=== PATIENT | female | born 1960 | race Caucasian/White ===

== ENCOUNTER 2019-05-16 12:32 | Observation (INO) | payer SELFPAY ==
[~2019-05-16] VITALS: Ht 165.1 cm; Wt 124.0 kg
[~2019-05-16 12:32] MED LIST: BENTYL20 MG OR; CIPRO500 MG PO; EX-LAX OR; SYNTHROID88 MCG PO; ULTRAM50 MG OR
--- NOTE | 2019-05-16 12:50 | NUR ---
PT TO ROOM WITH STEADY GAIT
--- NOTE | 2019-05-16 13:00 | NUR ---
PT STATES THAT SHE HAS BEEN SOB FOR PAST 2 DAYS. PT WAS SEEN AT [facility] AND SAID TO HAVE A ABNORMAL EKG AND WAS SATING LOW AROUND 77. PT ALSO HAS SWELLIGN AND REDNESS TO THE LEFT LEG. PT IS AOX4, TALKING IN FULL SENTENCES, SHOWING NO SIGNS OF DISTRESS. PT DENIES ANY C/P, N/V OR WEAKNESS.
--- NOTE | 2019-05-16 13:40 | NUR ---
BREATHING HAS IMPROVED WITH MEDICATION. PT STATES NO SOB AT THIS TIME.
--- NOTE | 2019-05-16 13:50 | NUR ---
PT RESTING ON STRETHCER, NO COMPLAINTS STATED AT THIS TIME.
[2019-05-16 14:09] LABS: IMMATURE GRANULOCYTES 0.6 % (0.0-5.0); MEAN CORPUSCULAR HGB 25.5 pG CALC (26.0-32.0); MEAN CORPUSCULAR HGB CONC 28.9 g/L CALC (32.0-36.0); NEUT# 4.92 thou/uL (2.00-7.15); RED BLOOD COUNT 5.22 mill/uL (4.20-5.60); RED CELL DISTRI WIDTH 17.2 % (11.5-15.5)
[2019-05-16 14:19] LABS: HEMOGLOBIN 13.3 g/dl (12.0-16.0); MEAN CELL VOLUME 88.1 fL CALC (80.0-100.0)
[2019-05-16 14:27] LABS: ALKALINE PHOSPHATASE 94 u/l (38-126); BUN 8 mg/dL (7-17); BUN/CREATININE RATIO 12 (12-20 (CALC)); CHLORIDE 94 mmol/l (95-108); CREATININE 0.7 mg/dL (0.5-1.0); GFR > 60 ML/MIN (>=60 (CALC)); GFR FOR AFR.AMER. > 60 ML/MIN (>=60 (CALC)); POTASSIUM 4.8 mmol/l (3.5-5.1); SGOT/AST 18 u/l (14-36); SODIUM 136 mmol/l (137-146); TOTAL PROTEIN 6.2 g/dL (6.3-8.2)
[2019-05-16 14:29] LABS: ALBUMIN 3.3 g/dL (3.2-5.0); ANION GAP 10 (6-22 (CALC)); CARBON DIOXIDE 37 mmol/l (22-30)
--- NOTE | 2019-05-16 14:50 | NUR ---
PT RESTING ON STRETHCER, IV PATENT WITH FLUIDS RUNNING. PT STATES BREATHING HAS IMPROVED
--- NOTE | 2019-05-16 15:50 | NUR ---
PT RESTING ON STRETCHER, NO COMPLAINTS STATED AT THIS TIME.
--- NOTE | 2019-05-16 16:13 | NUR ---
REPORT CALLED TO DEBBIE GUTIERREZ ACCEPTED PT
--- NOTE | 2019-05-16 16:22 | NUR ---
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;PT DENIES ANY CURRENT PAIN OR DISCOMFORTS,PAIN SCALE AND REPORTING EDUCATED;RESPIRATIONS EVEN AND UNLABORED ON O2 @ 2L VIA NC,DIMINISHED LUNG SOUNDS NOTED;NON-PRODUCTIVE COUGH AT TIMES;ABDOMEN DISTENDED/SOFT ON PALPATION AND ACTIVE IN ALL 4 QUADRANTS,LAST BM 05/16/19;WEAK PEDAL PULSES WITH +1 EDEMA NOTED TO BLE;PT REPORTS EDEMA HAS BEEN PRESENT FOR 5 MTHS,ENCOURAGED ELEVATION OF BLE;SKIN INTACT;TELE MONITORING IN PLACE;#20G TO LAC FLUSHED AND PATENT,SITE APPEARS HEALTHY;ALLERGY AND FALL BAND APPLIED;PT DENIES ANY ADDITIONAL NEEDS AT THIS TIME AND IS ENCOURAGED TO CALL FOR ASSISTANCE IF NEEDED;FALL PRECAUTIONS IN PLACE WITH BED IN THE LOWEST POSITION AND CALL LIGHT IN REACH;WILL CONTINUE TO MONITOR
[2019-05-16 16:31] VITALS: BP 130/86
--- NOTE | 2019-05-16 19:00 | NUR ---
PT RESTING IN SEMI FOWLERS POSITION;RESPIRATIONS EVEN AND UNLABORED ON O2 @ 2L VIA NC;PT DENIES ANY CURRENT PAIN OR NEEDS;TELE MONITORING IN PLACE;ENCOURAGED PT TO CALL FOR ASSISTANCE IF NEEDED;CALL LIGHT IN REACH;WILL CONTINUE TO MONITOR
[2019-05-16 20:00] VITALS: BP 134/72
--- NOTE | 2019-05-16 20:00 | NUR ---
PATIENT ALERT ORIENTED, ABLE TO MAKE NEEDS KNOWN, WITH SALINE LOCK ON LAC G20, PATENT FLUSHES WELL, NOTED TO HAVE EXERTIONAL DYSPNEA, REMAINS ON CONTINUOUS OS @2LPM VIA NC, TEL IN PLACE, CALL LIGHT AT REACH.
[2019-05-17] VITALS: BP 108/59
--- NOTE | 2019-05-17 | NUR ---
PATIENT APPEARS TO BE SLEEPING WITH EYES CLOSED, EVEN UNLABORED BREATHING CALL LIGHT AT REACH.
[2019-05-17 04:40] VITALS: BP 118/60
[2019-05-17 04:47] LABS: HEMATOCRIT 46.7 % (37.0-47.0); HEMOGLOBIN 13.1 g/dl (12.0-16.0); MEAN CELL VOLUME 90.5 fL CALC (80.0-100.0); MEAN CORPUSCULAR HGB 25.4 pG CALC (26.0-32.0); MEAN CORPUSCULAR HGB CONC 28.1 g/L CALC (32.0-36.0); PLATELET COUNT 162 thou/uL (130-400); RED BLOOD COUNT 5.16 mill/uL (4.20-5.60); RED CELL DISTRI WIDTH 16.9 % (11.5-15.5)
[2019-05-17 04:59] LABS: IMMATURE GRANULOCYTES 6.8 % (0.0-5.0); MANUAL DIFFERENTIAL YES
--- NOTE | 2019-05-17 05:00 | NUR ---
PATIENT AWAKE AT THIS TIME, ASSISTED TO BATHROOM, REMAINS ON O2 @ 2LPM VIA NC, WITH SHALLOW, UNLABORED BREATHING CALL LIGHT AT REACH.
[2019-05-17 05:01] LABS: ANION GAP 12 (6-22 (CALC)); BUN 8 mg/dL (7-17); BUN/CREATININE RATIO 13 (12-20 (CALC)); CALCULATED LDLCHOLESTEROL 72 mg/dL (62-129 (CALC)); CARBON DIOXIDE 34 mmol/l (22-30); CHLORIDE 97 mmol/l (95-108); CHOLESTEROL HDL RATIO 4.1 (<4.4 (CALC)); CREATININE 0.6 mg/dL (0.5-1.0); GFR > 60 ML/MIN (>=60 (CALC)); GFR FOR AFR.AMER. > 60 ML/MIN (>=60 (CALC)); HDL CHOLESTEROL 28 mg/dL (>=40); MAGNESIUM 2.2 mg/dL (1.6-2.3); SODIUM 138 mmol/l (137-146); TOTAL CHOLESTEROL 113 mg/dl (0-199); TOTAL TRIGLYCERIDES 69 mg/dl (30-149); VLDL CHOLESTROL 14 mg/dl (1-41 (CALC))
[2019-05-17 05:03] LABS: POTASSIUM 5.3 mmol/l (3.5-5.1)
[2019-05-17 05:18] LABS: ANISOCYTOSIS FEW; BAND 2 % (0-8); HYPOCHROMIA FEW; POIKILOCYTOSIS FEW; POLYCHROMASIA FEW
[2019-05-17 05:19] LABS: TARGET CELLS FEW
[2019-05-17 05:20] LABS: PLATELET ESTIMATE NORMAL
--- NOTE | 2019-05-17 07:25 | NUR ---
REPORT RECEIVED FROM EUGENIO STONE;PT APPEARS TO BE SLEEPING IN LEFT SIDE LAYING POSITION;NO S/S OF DISTRESS NOTED;RESPIRATIONS EVEN AND UNLABORED ON O2 @ 2L VIA NC;TELE MONITORING IN PLACE;ALL SAFETY PRECAUTIONS NOTED WITH BED IN THE LOWEST POSITION AND CALL LIGHT IN REACH;WILL CONTINUE TO MONITOR
--- NOTE | 2019-05-17 09:20 | NUR ---
PT APPEARS TO BE SLEEPING IN SUPINE POSITION,WAKES EASY TO VERBAL STIMULI;A&O X3;VS OBTAINED AND ASSESSMENT COMPLETED;PT DENIES ANY CURRENT PAIN OR DISCOMFORTS,PAIN SCALE AND REPORTING EDUCATED;RESPIRATIONS EVEN AND UNLABORED,SHALLOW ON O2 @ 2L VIA NC;ABDOMEN DISTENDED/SOFT ON PALPATION AND ACTIVE IN ALL 4 QUADANTS;WEAK PEDAL PULSES WITH +1 EDEMA NOTED TO BLE,ENCOURAGED ELEVATION OF BLE;SKIN INTACT;TELE MONITORING IN PLACE;#20G TO LAC FLUSHED AND PATENT,SITE APPEARS HEALTHY;PT DENIES ANY ADDITIONAL NEEDS AT THIS TIME AND IS ENCOURAGED TO CALL FOR ASSISTANCE IF NEEDED;FALL PRECAUTIONS IN PLACE WITH CALL LIGHT IN REACH;WILL CONTINUE TO MONITOR
[2019-05-17 09:21] VITALS: BP 107/68
[2019-05-17 11:31] VITALS: BP 116/50
--- NOTE | 2019-05-17 11:55 | NUR ---
PT RESTING AT BEDSIDE EATING LUNCH;RESPIRATIONS EVEN AND UNLABORED ON O2 @ 2L VIA NC;PT DENIES ANY CURRENT PAIN OR NEEDS;TELE MONITORING IN PLACE;IV SITE PATENT;ASSESSMENT REMAINS UNCHANGED AT THIS TIME;ENCOURAGED PT TO CALL FOR ASSISTANCE IF NEEDED;FALL PRECAUTIONS IN PLACE WITH CALL LIGHT IN REACH;WILL CONTINUE TO MONITOR
--- NOTE | 2019-05-17 15:15 | NUR ---
PT RESTING AT BEDSIDE;RESPIRATIONS EVEN AND UNLABORED ON O2 @ 2L VIA NC;PT DENIES ANY CURRENT PAIN OR DISCOMFORTS;TELE MONITORING IN PLACE;IV ABX INFUSING TO LAC WITH EASE;ASSESSMENT REMAINS UNCHANGED AT THIS TIME;ENCOURAGED TO CALL FOR ASSISTANCE IF NEEDED;FALL PRECAUTIONS IN PLACE WITH CALL LIGHT IN REACH;WILL CONTINUE TO MONITOR
[2019-05-17 17:04] VITALS: BP 107/69
--- NOTE | 2019-05-17 19:15 | NUR ---
REPORT RECEIVED FROM SYLVIA MILLS. PT RESTING IN BED WITH EYES CLOSED. SAFETY PRECAUTIONS IN PLACE. WILL CONTINUE TO MONITOR.
[2019-05-17 19:40] VITALS: BP 118/64
--- NOTE | 2019-05-17 20:35 | NUR ---
PT RESTING IN BED. RESPIRATIONS EVEN AND UNLABORED ON O2 @ 2L VIA NC. LUNGS SOUND CLEAR DIMINISHED. PEDAL PULSES WEAK. PT DENIES ANY PAIN OR DISCOMFORT AT THIS TIME. #20 LAC PATENT AND APPEARS HEALTHY. SAFETY PRECAUTIONS IN PLACE. WILL CONTINUE TO MONITOR.
--- NOTE | 2019-05-18 00:10 | NUR ---
PT RESTING IN BED. TELE IN PLACE. RESPIRATIONS EVEN AND UNLABORED ON O2 @ 2L VIA NC. CALL PINEDA WITHIN REACH WILL CONTINUE TO MONITOR.
[2019-05-18 00:20] VITALS: BP 141/73
[2019-05-18 03:40] VITALS: BP 112/59
--- NOTE | 2019-05-18 03:48 | NUR ---
PT RESTING IN BED. NO S/S OF DISTRESS AT THIS TIME. SAFETY PRECAUTIONS IN PLACE. WILL CONTINUE TO MONITOR.
[2019-05-18 04:50] LABS: HEMATOCRIT 44.6 % (37.0-47.0); HEMOGLOBIN 12.5 g/dl (12.0-16.0); IMMATURE GRANULOCYTES 3.1 % (0.0-5.0); MEAN CELL VOLUME 91.4 fL CALC (80.0-100.0); MEAN CORPUSCULAR HGB 25.6 pG CALC (26.0-32.0); NEUT# 7.26 thou/uL (2.00-7.15); RED BLOOD COUNT 4.88 mill/uL (4.20-5.60); RED CELL DISTRI WIDTH 17.1 % (11.5-15.5)
[2019-05-18 05:06] LABS: ANION GAP 11 (6-22 (CALC)); BUN 14 mg/dL (7-17); BUN/CREATININE RATIO 23 (12-20 (CALC)); CARBON DIOXIDE 35 mmol/l (22-30); CHLORIDE 96 mmol/l (95-108); CREATININE 0.6 mg/dL (0.5-1.0); GFR > 60 ML/MIN (>=60 (CALC)); GFR FOR AFR.AMER. > 60 ML/MIN (>=60 (CALC)); MAGNESIUM 2.3 mg/dL (1.6-2.3); SODIUM 137 mmol/l (137-146)
[2019-05-18 05:10] LABS: POTASSIUM 5.3 mmol/l (3.5-5.1)
--- NOTE | 2019-05-18 07:45 | NUR ---
REPORT RECEIVED FROM EUGENIO ABREU. PT SUPINE IN BED. SLEEPING. CALL LIGHT WITHIN REACH.
--- NOTE | 2019-05-18 08:30 | NUR ---
PT SITTING ON SIDE OF BED. DENIES PAIN. REPORTING OF CONCERNS ENCOURAGED. PLAN OF CARE DISCUSSED. PT STATES ANTICIPATION OF DISCHARGE TODAY. DISCHARGE PROCESS REVIEWED. PT ALERT AND ORIENTED. O2 @ 2L VIA NC, TELE UNIT IN PLACE. NO SOB. LUNG SOUNDS CLEAR AND DIMINISHED IN BASES. # 20 LAC SALINE LOCK, FREE OF REDNESS/SWELLING. CALL LIGHT REVIEWED AND IN REACH. PT STATES UNDERSTANDING.
[2019-05-18 09:12] VITALS: BP 120/60
[2019-05-18 11:37] VITALS: BP 108/51
--- NOTE | 2019-05-18 13:15 | NUR ---
RIP MCCAULEY IN TO SEE PT. AT THIS TIME. PLAN OF CARE UPDATED.
[2019-05-18 14:55] VITALS: BP 132/71
--- NOTE | 2019-05-18 15:43 | NUR ---
DR. JUAREZ IN TO SEE PT. DISCHARGE HOME DISCUSSED AND AGREED UPON.
[2019-05-18] MEDS ORDERED: ZITHROMAX500 MG PO (17:20)
[2019-05-18] MEDS ORDERED: PREDNISONE50 MG PO (17:20)
--- NOTE | 2019-05-18 18:37 | NUR ---
Discharge instructions given. Patient verbalizes understanding of same. Discharged in stable condition via Wheelchair to Home with family. All belongings sent with pt.
== END 2019-05-18 18:37 | disposition home or self-care (01) | DRG 190 ==
LOC: ED 12:32 → ED-I 12:59 → ED 15:01 → MS2 15:02
PROVIDERS: Family Medicine; Nurse Practitioner Family; ADMIT Internal Medicine; ATTEND Internal Medicine
DX: J44.1 Chronic obstructive pulmonary disease with (acute) exacerbation (principal); J96.02 Acute respiratory failure with hypercapnia; J96.01 Acute respiratory failure with hypoxia; F17.200 Nicotine dependence, unspecified, uncomplicated; Z85.9 Personal history of malignant neoplasm, unspecified; Z92.21 Personal history of antineoplastic chemotherapy; Z92.3 Personal history of irradiation
CPT/HCPCS: G0378; J1650

== ENCOUNTER 2019-05-25 21:40 | Emergency (ER) | payer SELFPAY ==
[~2019-05-25 21:40] MED LIST changes: +PREDNISONE50 MG PO; +ZITHROMAX500 MG PO
[2019-05-25 22:00] VITALS: BP 159/89
== END 2019-05-25 22:45 | disposition left against medical advice (07) | DRG 951 ==
LOC: ED 21:40 → LWOBS 22:45 → ED 22:45
DX: Z53.21 Procedure and treatment not carried out due to patient leaving prior to being seen by health care provider (principal)

== ENCOUNTER 2019-11-06 17:34 | Inpatient (IN) | payer MEDICAID ==
[~2019-11-06] VITALS: Ht 274.3 cm; Wt 120.9 kg
--- NOTE | 2019-11-06 17:40 | NUR ---
PT TO ROOM VIA WHEELCHAIR AND CONVERSTATIONALLY DYSPNEIC. SPO2 66% ON ROOM AIR. PT PLACED ON 4L NC.
--- NOTE | 2019-11-06 17:50 | NUR ---
PT PLACED SATS INCREASED TO 95% ON 4L NC. PT REPORTS BEING ON A UNKNOWN ANTIBIOTIC FOR SWELLING AND REDNESS TO ABD. PT ABD FIRM TO THE TOUCH AND REDNESS NOTED TO ABD LEFT BREAST AND RADIATING DOWN LEG.
--- NOTE | 2019-11-06 17:50 | NUR ---
IV INITIATED AND LABS COLLECTED. PT RESTING IN STRETCHER IN NAD. SPEECH IS CLEAR. COVID SWAB COLLECTED. PT TOLERATED WELL.
--- NOTE | 2019-11-06 18:00 | NUR ---
PT SATS REMAINS 94-96% ON 4L NC. PT DENIES ANY NEEDS AT THIS TIME CALL PINEDA WITHIN REACH.
[2019-11-06 18:17] LABS: HEMATOCRIT 45.4 % (37.0-47.0); IMMATURE GRANULOCYTES 0.9 % (0.0-5.0); MEAN CELL VOLUME 87.5 fL CALC (80.0-100.0); MEAN CORPUSCULAR HGB CONC 28.6 g/dL CAL (32.0-36.0); NEUT# 6.55 thou/uL (2.00-7.15); RED BLOOD COUNT 5.19 mill/uL (4.20-5.60); RED CELL DISTRI WIDTH 17.6 % (11.5-15.5)
--- NOTE | 2019-11-06 18:34 | NUR ---
UNABLE TO RECONCILE MEDICATIONS. PT HAS ALL MEDICATIONS FILLED AT [facility] AND WE ARE UNABLE TO REACH AT THIS TIME.
[2019-11-06 18:40] LABS: ALBUMIN 3.6 g/dL (3.2-5.0); ALKALINE PHOSPHATASE 100 u/l (38-126); ANION GAP 9 (6-22 (CALC)); BILIRUBIN, TOTAL 1.4 mg/dL (0.0-1.4); BUN 10 mg/dL (7-17); BUN/CREATININE RATIO 14 (12-20 (CALC)); CARBON DIOXIDE 37 mmol/l (22-30); CHLORIDE 92 mmol/l (95-108); CREATININE 0.7 mg/dL (0.5-1.0); GFR > 60 ML/MIN (>=60 (CALC)); GFR FOR AFR.AMER. > 60 ML/MIN (>=60 (CALC)); POTASSIUM 4.3 mmol/l (3.5-5.1); SODIUM 134 mmol/l (137-146); TOTAL PROTEIN 6.5 g/dL (6.3-8.2)
[2019-11-06 18:47] LABS: SGOT/AST 47 u/l (14-36)
--- NOTE | 2019-11-06 19:00 | NUR ---
REPORT TO EUGENIO ROSAS.
--- NOTE | 2019-11-06 19:49 | NUR ---
ATTEMPTED TO CALL REPORT/WILL CALL BACK.
--- NOTE | 2019-11-06 20:11 | NUR ---
REPORT TO KALLIE/NURSE-MED SURG.
--- NOTE | 2019-11-06 20:20 | NUR ---
PT RESTING. NAD. DAUGHTER AT BEDSIDE. IV ANTIBIOTICS COMPLETED. PT TO FLOOR VIA STRETCHER ON MONITOR BOX/O2 @ 4 LPM NC. PT AMBULATORY TO BED UPON ARRIVAL TO FLOOR.
[2019-11-06 20:27] VITALS: BP 140/78
--- NOTE | 2019-11-06 20:28 | NUR ---
RECEIVED REPORT FROM NURSE ROSAS, PATIENT TRANSPORTED BY WHEELCHAIR, HOOKED TO O2 @ 4LPM VIA NC, ORIENTED TO ROOM AND CALL LIGHT SYSTEM.
--- NOTE | 2019-11-06 21:30 | NUR ---
ADMISSION ASSESSMENT COMPLETED, PATIENT A/O X 4 KOSTAS TO MAKE NEEDS KNONW, WITH SALINE LOCK ON RFA PATENT, NOTED TO HAVE AUDIBLE WHEEZES, AND PATIENT REQUESTING TO RESTART INHALER.
--- NOTE | 2019-11-06 22:07 | NUR ---
CONTACTED DR. MCGOWAN WITH ORDERS MADE.
[2019-11-06 22:44] LABS: URINE BILIRUBIN - DIPSTICK NEGATIVE (NEGATIVE); URINE BLOOD DIPSTICK NEGATIVE (NEGATIVE); URINE COLOR YELLOW; URINE GLUCOSE - DIPSTICK NEGATIVE (NEGATIVE); URINE KETONE NEGATIVE (NEGATIVE); URINE LEUK ESTERASE NEGATIVE (NEGATIVE); URINE NITRITE - DIPSTICK NEGATIVE (Negative); URINE PROTEIN - DIPSTICK NEGATIVE (NEG-TRACE)
[2019-11-07] VITALS (7 sets, daily range): BP systolic 97–152; BP diastolic 46–73
--- NOTE | 2019-11-07 00:30 | NUR ---
PATIENT APPEARS TO BE SLEEPING DUE ANTIBIOTIC GIVEN CALL LIGHT AT REACH.
--- NOTE | 2019-11-07 05:07 | NUR ---
PATIENT APPEARS TO BE SLEEPING WITH EYES CLOSED, PATIENT KEEPS ON REMOVING O2 CANULA AND O2 SAT DROPS TO 80'S PATIENT EDUCATED THAT THE NEEDS TO WEAR IT AT THIS TIME, CALL LIGHT AT REACH
--- NOTE | 2019-11-07 08:05 | NUR ---
REPORT RECEIVED FROM EUGENIO ARREGUIN. PT RESTING IN BED ON LEFT SIDE WITH EYES CLOSED AND NO SIGNS OF DISTRESS; AWAKENS TO TACTILE STIMULI, BUT KEEPS EYES CLOSED. ENCOURAGEMENT NECESSARY FOR PT TO RESPOND TO QUESTIONS; FLAT AFFECT. DENIES PAIN. RESPIRATIONS EVEN AND UNLABORED ON OXYGEN 3L VIA NC; EXERTIONAL SOB. LUNGS ARE DIMINISHED. PITTING EDEMA TO BLE; LEGS ARE MODERATELY RED WITH WARMTH. LOWER ABDOMINAL ALSO RED AND WARM. PLAN OF CARE REVIEWED. PT ENCOURAGED TO VERBALIZE CONCERNS. STATES UNDERSTANDING. SAFETY MEASURES IN PLACE. CALL LIGHT WITHIN REACH.
[2019-11-07] MEDS ORDERED: CLEOCIN300 MG PO (08:38)
[2019-11-07] MEDS ORDERED: KLOR-CON M2020 MEQ PO (08:41)
[2019-11-07] MEDS ORDERED: FUROSEMIDE20 MG PO (08:46)
[2019-11-07] MEDS ORDERED: PROVENTIL HFA IN (08:48)
[2019-11-07] MEDS ORDERED: SYMBICORT1 AE1 IN (08:49)
--- NOTE | 2019-11-07 12:00 | NUR ---
PT INDEPENDENT IN ROOM; AMBULATES TO THE BATHROOM WITH OXYGEN ON. 93% SPO2 ON 3L VIA NC. BEDSIDES EATING AND USING BATHROOM PT RESTS ON LEFT SIDE AND TAKES ENCOURAGEMENT TO ANSWER QUESTIONS FROM PHARMACY AND CASE MANAGEMENT. ZOSYN INFUSING AT THIS TIME; IV SITE APPEARS HEALTHY AND FLUSHES. PT DENIES COUGH, PAIN, AND SOB. TELE ON; NSR PER HAMPER MAKER MACHINE.
--- NOTE | 2019-11-07 16:00 | NUR ---
NO CHANGES IN CONDITION. PT HAS NOT CALLED FOR ASSISTANCE. SAFETY MEASURES IN PLACE. CALL LIGHT WITHIN REACH.
--- NOTE | 2019-11-07 17:34 | NUR ---
NEW ORDER RECEIVED FOR LASIX; GIVEN AND PT EDUCATED ON IDICATION AND SIDE EFFECTS. STATES UNDERSTANDING. OTHERWISE KEEPS EYES CLOSED AND CONTINUES RESTING ON LEFT SIDE. FAMILY DROPPED OFF SOME BELONGINGS AND STAFF PROVIDED TO PT WHO REMAINS ON AIRBORNE/CONTACT ISOLATION PENDING COVID SWAB RESULTS.
--- NOTE | 2019-11-08 01:34 | NUR ---
Appears asleep, resp unlabored, no voiced discomforts at present.
[2019-11-08 04:12] VITALS: BP 121/56
--- NOTE | 2019-11-08 06:45 | NUR ---
REPORT RECEIVED FORM SHA VYAS RN. CARE ASSUMED.
[2019-11-08 07:30] VITALS: BP 112/51
--- NOTE | 2019-11-08 07:30 | NUR ---
PT RESTING IN BED WITH EYES CLOSED. PT AROUSES TO VERBAL STIMULI. PT IS ALERT AND ORIENTED X3. SHIFT ASSESSMENT COMPLETED AT THIS TIME. IV PATENT X1. PT NOT WEARING O2. INSTRUCTED PT TO PLACE O2 NC ON. PT ABLE TO FOLLOW INSTRUCTIONS. CALL LIGHT IN REACH. WILL CONTINUE TO MONITOR.
--- NOTE | 2019-11-08 10:30 | NUR ---
Farida DELGADILLO APRN AT BESIDE AT THIS TIME.
[2019-11-08 11:22] VITALS: BP 119/66
--- NOTE | 2019-11-08 11:45 | NUR ---
#20 RFA REMOVED WITH CATH TIP INTACT DUE TO IV LEAKING. #22 STARTED TO RIGHT WRIST X1 ATTEMPT. PT TOLERATED WELL. CALL LIGHT IN REACH. WILL CONTINUE TO MONITOR.
--- NOTE | 2019-11-08 15:55 | NUR ---
CALL RECEIVED FROM JOSE,S[facility] REPORTING PT HEART RATE IN LOW 30'S. EUGENIO VALLE NOTIFIED.PER LEONARD PT IS SITTING UP ON THE SIDE OF THE BED TOUCHING TELE LEADS,DENIES ANY PAIN OR NEEDS;ER NOTIFIED AND JOSE REPORTS PT HR IS NOW IN THE 60'S.
--- NOTE | 2019-11-08 16:00 | NUR ---
PT SITTING UP ON SIDE OF RESP ARE EVEN AND UNLABORED. NO DISTRESS NOTED. ROOM CLEANED AT THIS TIME BY THIS INSULATOR TESTER. CALL LIGHT IN REACH. WILL CONTINUE TO MONITOR.
[2019-11-08 16:07] VITALS: BP 95/59
[2019-11-08 18:30] VITALS: BP 104/72
--- NOTE | 2019-11-08 20:10 | NUR ---
SUPERVISOR EDGING IN W/PT AT THIS TIME. SMALL AMOUNT OF INCONTINENT STOOL IN THE BED, BEDDING CHANGED. PT IS TAKING A SHOWER AT THIS TIME. WILL FOLLOW-UP WITH MEDICATIONS AND ASSESSMENT WHEN PT IS OUT OF THE SHOWER. SUPERVISOR EDGING ASSISTING PT.
--- NOTE | 2019-11-08 21:56 | NUR ---
PT MEDICATED ORDERS PROVIDE. ASSESSMENT COMPLETED AT THIS TIME. PT SLEEPING, AWOKE TO MY VOICE, RESPONDED TO MY QUESTIONS, NAME AND , BUT KEPT EYES CLOSED. NO S/O DISTRESS. I ASKED PT IF SHE FELT SOB, SHE SHOOK HER HEAD NO. WHEN ASKED ABOUT PAIN/N/V, SHOOK HEAD NO. REDNESS TO BLE AND REDNESS UP ON HER ABD. I ASKED THE PT IF SHE HAS BEEN RED ON HER ABDOMEN ALSO, SHE REPLIED "YES IT'S BEEN LIKE THAT, THEY GAVE ME ANTIBIOTICS." DENIES ANY NEEDS AT THIS TIME, LIGHTS AND TV ARE ON, I TURNED THE [employer] LIGHT OFF FOR HER AND REMINDED HER OF LIGHT CONTROLS SUPERVISOR ADVICE LIGHT.
[2019-11-08 23:50] VITALS: BP 122/45
--- NOTE | 2019-11-09 00:06 | NUR ---
PT MEDICATED W/IV ANTIBIOTIC THERAPY. PT SLEEPING WITH LIGHTS AND TV ON. AIDE JUST IN TO OBTAIN V/S. PT DENIES ANY NEEDS. OXYGEN WAS ON PT'S FOREHEAD WHEN I ENTERED THE ROOM. AIDE REPORTS THAT PT WAS NOT WEARING OXYGEN AT TIME SHE ENTERED TO OBTAIN V/S AND THAT PT'S OXYGEN SAT LEVEL WAS HIGH 80'S ROOM AIR AND WHEN OXYGEN NC WAS PLACED TO NOSE PT'S O2 LEVELS TIN TO 94% I REMINDED PT OF THE NEED FOR OXYGEN AND SHE QUICKLY PLACED IT BACK IN HER NOSE.
--- NOTE | 2019-11-09 03:24 | NUR ---
pt v/s assessed and equipment monitor phototypesetting contacts replaced. pt was not wearing her oxygen when I entered the room. 02 sat low 80's on RA. I replaced NC and pt 02sat level came to 90% on 02NC @3L. Will continue to monitor levels. I educated pt on the importance of wearing her oxygen, she verbalized understanding. Blood drawn for labs at this time. Extra blanket provided per request for comfort. Pt denies any other needs and encouraged to call as they arise.
[2019-11-09 03:31] VITALS: BP 129/78
[2019-11-09 05:27] LABS: HEMATOCRIT 43.8 % (37.0-47.0); HEMOGLOBIN 12.1 g/dl (12.0-16.0); MEAN CELL VOLUME 90.9 fL CALC (80.0-100.0); MEAN CORPUSCULAR HGB 25.1 pG CALC (26.0-32.0); MEAN CORPUSCULAR HGB CONC 27.6 g/dL CAL (32.0-36.0); RED BLOOD COUNT 4.82 mill/uL (4.20-5.60); RED CELL DISTRI WIDTH 17.6 % (11.5-15.5)
[2019-11-09 05:40] LABS: ALBUMIN 3.4 g/dL (3.2-5.0); ALKALINE PHOSPHATASE 82 u/l (38-126); BUN 17 mg/dL (7-17); BUN/CREATININE RATIO 20 (12-20 (CALC)); CHLORIDE 90 mmol/l (95-108); CREATININE 0.9 mg/dL (0.5-1.0); GFR > 60 ML/MIN (>=60 (CALC)); GFR FOR AFR.AMER. > 60 ML/MIN (>=60 (CALC)); SGOT/AST 24 u/l (14-36); SODIUM 137 mmol/l (137-146)
[2019-11-09 05:48] LABS: ANION GAP 6 (6-22 (CALC))
[2019-11-09 05:49] LABS: BILIRUBIN, TOTAL 0.8 mg/dL (0.0-1.4); CARBON DIOXIDE 45 mmol/l (22-30)
--- NOTE | 2019-11-09 06:04 | NUR ---
LAB CALLED TO REPORT CRITICAL HIGH CO2 LEVELS OF 45 UP FROM 39. PHYSICIAN NOTIFIED, NO NEW ORDERS RECEIVED AT THIS TIME.
--- NOTE | 2019-11-09 06:30 | NUR ---
ROOM ENTERED TO FLUSH IV, IV ANTIBIOTIC THERAPY COMPLETE AT THIS TIME. PT LAYING ON LEFT SIDE OFF. NC REPLACED AND PT REMINDED TO KEEP IT ON.
--- NOTE | 2019-11-09 07:50 | NUR ---
REPORT RECEIVED FROM EUGENIO JOSEPH. PT RESTING IN BED ON LEFT SIDE; SAT UP ON EDGE OF BED FOR BREAKFAST. ALERT AND ORIENTED. DENIES PAIN. RESPIRATIONS EVEN AND UNLABORED ON OXYGEN 3L VIA NC. UPON ENTER ROOM NC WAS REMOVED FROM NARES AND RESTING BELOW CHIN; PT REPLACED OXYGEN TO NOSE IMMEDIATELY WITHOUT BEING INSTRUCTED BY NURSE. IV SITE OCCLUDED DURING FLUSH. TELE ON. PLAN OF CARE REVIEWED. PT ENCOURAGED TO VERBALIZE CONCERNS. STATES UNDERSTANDING. SAFETY MEASURES IN PLACE. CALL LIGHT WITHIN REACH.
[2019-11-09 07:58] VITALS: BP 110/53
--- NOTE | 2019-11-09 09:19 | NUR ---
PT TRANSFERRED TO ROOM 261 AND PLACED ON STANDARD PRECAUTIONS. PT AMBULATED WITH OXYGEN; SPO2 DECREASED BELOW 80%; AT REST WITH 3L NC SPO2 INCREASED BACK TO 97%.
--- NOTE | 2019-11-09 09:46 | NUR ---
NEW IV SITE PLACED TO LFA; OCCLUDED SITE REMOVED; PT TOLERATED WELL. CASE MANAGEMENT AT BEDSIDE TO DISCUSS POSSIBLE NEED FOR OXYGEN ON DISCHARGE.
[2019-11-09 10:49] VITALS: BP 111/63
--- NOTE | 2019-11-09 11:46 | NUR ---
PT SITTING UP ON EDGE OF BED EATING LUNCH. ZOSYN INFUSING WITHOUT DIFFICULTY.
--- NOTE | 2019-11-09 13:40 | NUR ---
RT AT BEDSIDE FOR BREATHING TREATMENT.
--- NOTE | 2019-11-09 15:02 | NUR ---
SPO2 READING 81% ON 3L NC DURING ROUNDS. O2 TITRATED UP TO 4L. PT DENIES SOB AND RESPIRATIONS ARE EVEN AND UNLABORED WHILE RESTING ON LEFT SIDE HOB ELEVATE 30 DEGREES. PT EDUCATED AGAIN ON BREATHING TECHNIQUES AND COMPLIANCE WITH OXYGEN USE. WILL REASSES.
[2019-11-09 15:25] VITALS: BP 112/43
--- NOTE | 2019-11-09 15:37 | NUR ---
SPO2 INCREASED TO 92%. OXYGEN USE REINFORCED.
--- NOTE | 2019-11-09 17:04 | NUR ---
RT AT BEDSIDE FOR BREATHING TREATMENT.
[2019-11-09 18:40] VITALS: BP 114/59
--- NOTE | 2019-11-09 19:25 | NUR ---
PT SITTING ON THE SIDE OF THE BED W/LIGHTS AND TV ON. PT HAS 02NC ON @3L. WILL CONTINUE TO MONITOR. PT REPORTS FEELING LIKE SHE "IS DRAGGING." NO OTHER S/O DISTRESS NOTED. POC DISCUSSED W/PT, SHE VERBALIZED UNDERSTANDING REGARDING THE IMPORTANCE OF WEARING THE OXYGEN.
--- NOTE | 2019-11-09 21:01 | NUR ---
PT LAYING ON LEFT SIDE W/02NC OFF. 02 SAT LEVEL 78% ON RA. NC REPLACED, 02 SAT AT 3L UP TO 94% PT MEDICATED AND ASSESSMENT COMPLETED. PT DENIES ANY OTHER NEEDS. SHE IS SLEEPING W/EYES CLOSED, BUT AROUSES TO MY VOICES AND ANSWERS MY QUESTIONS APPROPRIATELY.
--- NOTE | 2019-11-09 21:31 | NUR ---
RESP ENTERED ROOM, PT UP TO RESTROOM, DID NOT CALL FOR ASSISTANCE. BEDDING CHANGED WHILE PT IS UP. NO S/O DISTRESS NOTED, SMALL AMOUNT OF SOB ON EXERTION. 02 NOT ON.
[2019-11-09 23:35] VITALS: BP 132/77
--- NOTE | 2019-11-10 00:11 | NUR ---
PT MEDICATED ORDERS PROVIDE W/IV ANTIBIOTIC THERAPY
[2019-11-10 03:35] VITALS: BP 125/68
--- NOTE | 2019-11-10 03:45 | NUR ---
AIDE IN W/PT, PT DOES NOT HAVE 02NC ON. PT ASKED TO REPLACE THE NC FOR V/S TO BE ASSESSED. PT O2 SATS ARE 78-82% ON RA. 02@3LNC REPLACED, PT 02SAT LEVELS 94%.
[2019-11-10 05:17] LABS: BUN 22 mg/dL (7-17); BUN/CREATININE RATIO 25 (12-20 (CALC)); CHLORIDE 88 mmol/l (95-108); CREATININE 0.9 mg/dL (0.5-1.0); GFR > 60 ML/MIN (>=60 (CALC)); GFR FOR AFR.AMER. > 60 ML/MIN (>=60 (CALC)); POTASSIUM 3.9 mmol/l (3.5-5.1); SODIUM 137 mmol/l (137-146)
--- NOTE | 2019-11-10 05:22 | NUR ---
ENTERED PT'S ROOM TO ADMINISTERED IV ANTIBIOTIC. PT HAD PULLED IV SITE OUT AND WAS ASLEEP. PT DID NOT BLEED. IV WAS FOUND ON THE FLOOR INTACT.
[2019-11-10 05:24] LABS: ANION GAP 9 (6-22 (CALC))
[2019-11-10 05:25] LABS: CARBON DIOXIDE 44 mmol/l (22-30)
--- NOTE | 2019-11-10 06:04 | NUR ---
ATTEMPT X2 TO OBTAIN IV SITE. UNABLE TO OBTAIN. WILL NOTIFY DAY NURSE FOR ACCESS.
--- NOTE | 2019-11-10 07:00 | NUR ---
REPORT RECEIVED FROM EUGENIO JOSEPH. PT RESTING IN BED ON LEFT SIDE WITH EYES CLOSED; AWAKENS TO VERBAL STIMULI. DENIES PAIN. RESPIRATIONS EVEN AND UNLABORED ON OXYGEN 3L VIA NC. PLAN OF CARE REVIEWED. PT ENCOURAGED TO VERBALIZE CONCERNS. STATES UNDERSTANDING. SAFETY MEASURES IN PLACE. CALL LIGHT WITHIN REACH.
--- NOTE | 2019-11-10 08:30 | NUR ---
PT SHOWERED INDEPENDENTLY AND SITTING ON EDGE OF BED NAKED EVEN AFTER GOWN WAS OFFERED AND LAID OUT. HELPED PT DRESS. PT C/O DIZZINESS AND SLIGHTLY DISORIENTED TO TIME; ASKS IF IT IS 0930 AM OR PM. ORIENTED OTHERWISE. OXYGEN TUBING ON THE FLOOR; SPO2 80% ON ROOM AIR. OXYGEN REAPPLIED.
--- NOTE | 2019-11-10 09:00 | NUR ---
VENEER SPLICER AT BEDSIDE; OXYGEN TITRATED DOWN TO 1L VIA NC; PT POSSIBLY BEING HYPEROXYGENATED. WILL CONTINUE TO MONITOR.
--- NOTE | 2019-11-10 09:58 | NUR ---
NEW IV STARTED TO LEFT WRIST AND AM MEDICATIONS ADMINISTERED.
[2019-11-10 11:19] VITALS: BP 116/56
--- NOTE | 2019-11-10 11:21 | NUR ---
SPO2 DECREASED INTO THE 60'S ON ROOM AIR; PT REMOVED OXYGEN. RT AT BEDSIDE; OXYGEN TITRATED UP TO 3L AND SPO2 INCREASED UP TO 90% WITH DEEP BREATHING. WILL CONTINUE TO MONITOR.
--- NOTE | 2019-11-10 12:36 | NUR ---
DR. MCGOWAN AT BEDSIDE.
[2019-11-10 15:16] VITALS: BP 122/60
--- NOTE | 2019-11-10 17:00 | NUR ---
PT SITTING UP IN BEDSIDE CHAIR; ALERT AND ORIENTED. TAKES FREQUENT SHOWERS. IV SITE IS HEALTHY AND FLUSHES. NO REQUESTS OR CONCERNS AT THIS TIME. CALL LIGHT WITHIN REACH.
[2019-11-10 18:50] VITALS: BP 133/70
--- NOTE | 2019-11-10 21:00 | NUR ---
UPON ENTERING ROOM PT LAYING ON LEFT SIDE, WATCHING TV. PT APPEARS IN NO APPARENT DISTRESS. RESPIRATIONS REGULAR AND UNLABORED. PHYSICAL ASSEMENT COMPLETE. ERYTHEMA AND EDEMA NOTED TO BLE. PT DENIES PAIN/DISCOMFORT. STATES "THIS IS THE BEST THEY'VE LOOKED" REGARDING HER BLE CELLULITIS. LAST SET OF VS TAKEN BY Jose Manuel CALDERON CNA ASSESSED. PT AFEBRILE AND HEMODYNAMICALLY STABLE. PLAN OF CARE REVIEWED. PT VERBALIZES UNDERSTANDING AND DENIES QUESTIONS. HS SNACK AND FRESH WATER PROVIDED PER PTS REQUEST. PT SITS UP AT SIDE OF BED TO EAT W/O DIFFICULTY. DENIES FURTHER NEEDS @ THIS TIME. ITEMS WITHIN REACH. BED LOCKED IN LOW POSITION W/ BEDRAILS UP X2. CALL PINEDA WITHIN REACH, AGREES TO CALL PRN.
[2019-11-10 23:30] VITALS: BP 127/62
--- NOTE | 2019-11-11 01:00 | NUR ---
PT APPEARS TO BE SLEEPING COMFORTABLY, NO APPARENT DISTRESS, RESPIRATION REGULAR AND UNLABORED, CALL PINEDA REMAINS WITHIN REACH.
[2019-11-11 03:35] VITALS: BP 130/56
--- NOTE | 2019-11-11 05:45 | NUR ---
PT RESTING IN BED. PHYSICAL ASSESMENT REMAINS UNCHANGED. VSS. PT DENIES NEEDS @ THIS TIME. CALL PINEDA REMAINS WITHIN REACH, AGREES TO CALL PRN.
--- NOTE | 2019-11-11 07:10 | NUR ---
REPORT RECEIVED FROM EUGENIO DE LA GARZA. PT RESTING IN BED ON LEFT SIDE WITH EYES CLOSED; AWAKENS TO VERBAL STIMULI. DENIES PAIN. RESPIRATIONS EVEN AND UNLABOREDON OXYGEN 3L VIA NC. EXPIRATORY WHEEZING IN BASES; 2+ ANKLE EDEMA WITH REDNESS AND WARMTH TO BLE. PLAN OF CARE REVIEWED. PT ENCOURAGED TO VERBALIZE CONCERNS. STATES UNDERSTANDING. SAFETY MEASURES IN PLACE. CALL LIGHT WITHIN REACH.
[2019-11-11 07:30] VITALS: BP 106/56
--- NOTE | 2019-11-11 09:03 | NUR ---
PT UP IN SHOWER AT THIS TIME; SHOWER SET UP WITH SAFETY MEASURES IN PLACE.
[2019-11-11 11:52] VITALS: BP 114/61
[2019-11-11 14:56] VITALS: BP 121/67
--- NOTE | 2019-11-11 16:01 | NUR ---
PT SITTING UP ON EDGE OF BED; NO REQUESTS OR CONCERNS AT THIS TIME.
--- NOTE | 2019-11-11 18:17 | NUR ---
ZOSYN INFUSING AT THIS TIME. PT MORE ALERTY AND PARTICIPATING MORE IN CARE. ALSO MORE COMPLIANT WITH KEEPING NC IN NARES FOR OXYGEN USE. OXYGEN CONTINUES AT 3L. WILL CONTINUE TO MONITOR.
[2019-11-11 19:24] VITALS: BP 126/71
--- NOTE | 2019-11-11 19:35 | NUR ---
SITTING ON SIDE OF THE BED. NO S/O DISTRESS NOTED.
--- NOTE | 2019-11-11 21:35 | NUR ---
PT MEDICATED ORDERS PROVIDE AND ASSESSMENT COMPLETED AT THIS TIME. PT WAS SLEEPING, BUT LEFT ON SIDE OF THE BED. PT REPORTS FEELING MUCH BETTER AND SEEMS MORE ALERT AND RESPONSIVE AT THIS TIME. 02NC WAS IN PLACE TO PT AND RUNNING @3L. WILL CONTINUE TO MONITOR AND ATTEMPT TO TITRATE.
--- NOTE | 2019-11-11 23:15 | NUR ---
PT SLEEPING, IV ANTIBIOTIC THERAPY ADMINISTERED. NO S/O DISTRESS NOTED.
[2019-11-12] VITALS (7 sets, daily range): BP systolic 93–135; BP diastolic 57–74
[2019-11-12 05:03] LABS: HEMATOCRIT 42.4 % (37.0-47.0); HEMOGLOBIN 12.1 g/dl (12.0-16.0); MEAN CELL VOLUME 88.1 fL CALC (80.0-100.0); MEAN CORPUSCULAR HGB 25.2 pG CALC (26.0-32.0); MEAN CORPUSCULAR HGB CONC 28.5 g/dL CAL (32.0-36.0); RED BLOOD COUNT 4.81 mill/uL (4.20-5.60); RED CELL DISTRI WIDTH 17.5 % (11.5-15.5)
[2019-11-12 05:14] LABS: ALBUMIN 3.5 g/dL (3.2-5.0); ALKALINE PHOSPHATASE 67 u/l (38-126); BILIRUBIN, TOTAL 0.9 mg/dL (0.0-1.4); BUN 22 mg/dL (7-17); BUN/CREATININE RATIO 24 (12-20 (CALC)); CHLORIDE 88 mmol/l (95-108); CREATININE 0.9 mg/dL (0.5-1.0); GFR > 60 ML/MIN (>=60 (CALC)); GFR FOR AFR.AMER. > 60 ML/MIN (>=60 (CALC)); POTASSIUM 3.9 mmol/l (3.5-5.1); SGOT/AST 29 u/l (14-36); SODIUM 136 mmol/l (137-146); TOTAL PROTEIN 6.1 g/dL (6.3-8.2)
[2019-11-12 05:26] LABS: ANION GAP 6 (6-22 (CALC)); CARBON DIOXIDE 46 mmol/l (22-30)
--- NOTE | 2019-11-12 05:33 | NUR ---
PT SLEEPING, ANSWERED MY QUESTIONS. IV ANTIBIOTIC THERAPY ADMINISTERED AT THIS TIME.
--- NOTE | 2019-11-12 07:00 | NUR ---
REPORT RECEIVED. PT SITTING UP ON EDGE OF BED; ALERT AND ORIENTEED. DENIES PAIN. RESPIRATIONS EVEN AND UNLABORED ON OXYGEN 3L NC. TELE ON. PT REQUESTING SHOWER.
--- NOTE | 2019-11-12 11:45 | NUR ---
DR. MCKENZIE AT BEDSIDE.
--- NOTE | 2019-11-12 13:15 | NUR ---
RT AT BEDSIDE FOR BREATHING TREATMENT.
--- NOTE | 2019-11-12 16:56 | NUR ---
RT AT BEDSIDE FOR BREATHING TREATMENT.
--- NOTE | 2019-11-12 17:01 | NUR ---
PT SITTING UP ON EDGE OF BED WATCHING TV AND PLAYING ON PHONE. NO REQUESTS OR CONCERNS AT THIS TIME. SAFETY MEASURES IN PLACE. CALL LIGHT WITHIN REACH.
--- NOTE | 2019-11-12 18:32 | NUR ---
PT EXPERINCED PAIN WITH FLUSHING OF IV SITE ;SITE D/C'D. UNABLE TO RESTART IV. WILL PASS ON TO NEXT SHIFT.
--- NOTE | 2019-11-12 19:40 | NUR ---
PT. SITTING UP ON THE SIDE OF THE BED WITH NO DISTRESS NOTED; DENIES NEEDS/PAIN. O2 INFUSING PER NC PER ORDER. PT. WITH NO IV SITE, NEW IV SITE STARTED X1 ATTEMPT TO RIGHT HAND #22 GAUGE AND 1800 ZOSYN RESTARTED. PT. ENCOURAGED TO KEEP BLE ELEVATED TO ASSIST WITH SWELLING. INSTRUCTED TO CALL FOR ANY NEEDS. UPDATED ON POC. ENCOURAGED TO CALL FOR ANY NEEDS.
--- NOTE | 2019-11-12 23:37 | NUR ---
PT. SITTING UP ON THE SIDE OF THE BED WITH NO DISTRESS NOTED; DENIES NEEDS. MEI SULTANA. VSS. ENCOURAGED TO CALL FOR ANY NEEDS.
[2019-11-13 04:48] VITALS: BP 111/54
--- NOTE | 2019-11-13 04:48 | NUR ---
VSS. NO DISTRESS NOTED; DENIES NEEDS/PAIN. ENCOURAGED TO CALL FOR ANY NEEDS. CALL LIGHT IS IN REACH.
--- NOTE | 2019-11-13 07:00 | NUR ---
REPORT RECEIVED FROM EUGENIO MELTON. PT RESTING IN BED ON LEFT SIDE WITHE EYES CLOSED; AWAKENS SPONTANEOUSLY. ALERT AND ORIENTED. DENIES PAIN. RESPIRATIONS EVEN AND UNLABORED ON OXYGEN 3L VIA NC. PLAN OF CARE REVIEWED. PT ENCOURAGED TO VERBALIZE CONCERNS. STATES UNDERSTANDING. SAFETY MEASURES IN PLACE. CALL LIGHT WITHIN REACH.
[2019-11-13 08:00] VITALS: BP 107/63; BP 108/61
--- NOTE | 2019-11-13 11:21 | NUR ---
DR. MCGOWAN AT BEDSIDE TO DISCUSS DISCHARGE HOME AFTER ECHOCARDIOGRAM. WILL GO HOME WITH OXYGEN. CASE MANAGMENT CONSULTED.
[2019-11-13] MEDS ORDERED: PREDNISONE10 MG PO (13:39)
[2019-11-13] MEDS ORDERED: FUROSEMIDE20 MG PO (13:39)
[2019-11-13] MEDS ORDERED: IPRATROPIU0.5 MG/3 M NEB (13:39)
--- NOTE | 2019-11-13 15:25 | NUR ---
WALK TEST ORDERED FOR OXYGEN QUALIFICATION. OXYGEN REMOVED AND PT REMAINED 83% SPO2 AT REST FOR 10 MINUTES. MD AND CASE MANGEMENT NOTIFIED. PT BACK ON 3L VIA NC. RECEIVING BREATHING TREATMENT AT THIS TIME.
[2019-11-13 15:27] VITALS: BP 119/69
--- NOTE | 2019-11-13 17:12 | NUR ---
IV site discontinued, cath intact. No edema , no redness, voices no discomfort.
--- NOTE | 2019-11-13 18:13 | NUR ---
[employer] HERE TO DROP OFF OXYGEN TAKE FOR HOME.
[2019-11-13 18:40] VITALS: BP 121/72
--- NOTE | 2019-11-13 21:05 | NUR ---
ECHO COMPLETED BY LISA AND PT ASSISTED OFF UNIT BY RAISA ACCOMPANIED BY DANIA. 02NC ON AT TIME LEAVING UNIT. FAMILY REPORTEDLY DOWNSTAIRS TO PICK HER UP. PT TALKATIVE AND IN STABLE CONDITION UPON LEAVING.
== END 2019-11-13 21:05 | disposition home or self-care (01) | DRG 190 ==
LOC: ED 17:34 → ED-I 18:20 → ED 18:20 → ED-I 18:38 → ED 18:48 → ED-I 18:49 → MS2 18:49
PROVIDERS: Nurse Practitioner Family; Student in an Organized Health Care Education/Training Program; ADMIT Internal Medicine; ATTEND Internal Medicine
DX: J44.1 Chronic obstructive pulmonary disease with (acute) exacerbation (principal); J96.02 Acute respiratory failure with hypercapnia; J96.01 Acute respiratory failure with hypoxia; L03.116 Cellulitis of left lower limb; L03.115 Cellulitis of right lower limb; I50.9 Heart failure, unspecified; Z85.9 Personal history of malignant neoplasm, unspecified; Z92.3 Personal history of irradiation; Z92.21 Personal history of antineoplastic chemotherapy; Z87.891 Personal history of nicotine dependence; Z20.828 Contact with and (suspected) exposure to other viral communicable diseases
CPT/HCPCS: J1650

== ENCOUNTER 2020-03-03 01:02 | Inpatient (IN) | payer MEDICAID ==
[~2020-03-03] VITALS: Ht 165.1 cm; Wt 115.0 kg
[~2020-03-03 01:02] MED LIST changes: +CLEOCIN300 MG PO; +FUROSEMIDE20 MG PO; +IPRATROPIU0.5 MG/3 M NEB; +KLOR-CON M2020 MEQ PO; +PREDNISONE10 MG PO; +PROVENTIL HFA IN; +SYMBICORT1 AE1 IN
--- NOTE | 2020-03-03 01:06 | NUR ---
PT FROM CAR VIA W/C TO ROOM 10. C/O ABD PAIN. STARTED VOMITING UPON ARRIVAL IN ER.
--- NOTE | 2020-03-03 01:30 | NUR ---
SUDDEN ABDOMINAL PAIN SINCE 2029.
[2020-03-03 01:55] LABS: IMMATURE GRANULOCYTES 0.3 % (0.0-5.0); MEAN CORPUSCULAR HGB 30.2 pG CALC (26.0-32.0); MEAN CORPUSCULAR HGB CONC 31.6 g/dL CAL (32.0-36.0); NEUT# 10.37 thou/uL (2.00-7.15); RED BLOOD COUNT 5.13 mill/uL (4.20-5.60)
[2020-03-03 01:56] LABS: HEMATOCRIT 49.1 % (37.0-47.0); HEMOGLOBIN 15.5 g/dl (12.0-16.0); MEAN CELL VOLUME 95.7 fL CALC (80.0-100.0)
[2020-03-03 02:05] LABS: AMYLASE 84 u/l (30-110); ANION GAP 11 (6-22 (CALC)); BILIRUBIN, TOTAL 0.9 mg/dL (0.0-1.4); BUN 14 mg/dL (7-17); BUN/CREATININE RATIO 14 (12-20 (CALC)); CARBON DIOXIDE 38 mmol/l (22-30); CHLORIDE 92 mmol/l (95-108); CREATININE 1.1 mg/dL (0.5-1.0); GFR 51 ML/MIN (>=60 (CALC)); GFR FOR AFR.AMER. > 60 ML/MIN (>=60 (CALC)); LIPASE 90 u/l (23-300); POTASSIUM 4.2 mmol/l (3.5-5.1); SGOT/AST 31 u/l (14-36); SODIUM 137 mmol/l (137-146)
[2020-03-03 02:06] LABS: ALBUMIN 4.5 g/dL (3.2-5.0); ALKALINE PHOSPHATASE 130 u/l (38-126); TOTAL PROTEIN 7.8 g/dL (6.3-8.2)
--- NOTE | 2020-03-03 02:21 | NUR ---
THE PATIENT STS THAT SHE IS 0.10, PAIN IS GONE, NAUSEA IS GONE, WAITING FOR XRAY
--- NOTE | 2020-03-03 02:55 | NUR ---
RETURNED FROM XRAY, WAITING FOR RESULTS
--- NOTE | 2020-03-03 03:33 | NUR ---
THE PATIENT IS COMFORTABLE AT THIS IIME. WAITING FOR RESULTS.
--- NOTE | 2020-03-03 04:11 | NUR ---
THE PATIENT IS SLEEPING.
--- NOTE | 2020-03-03 05:19 | NUR ---
REPORT GIVEN TO ZACKARY BECKER
[2020-03-03 06:00] VITALS: BP 112/71
--- NOTE | 2020-03-03 06:44 | NUR ---
NEW ADMITTION FROM ER ARRIVED TO THE ROOM AT 0536 ON 2 LTR OF O2 VIA NC DX OF SMALL BOWEL OBSTRUCTION HX OF COPD, NPO CURRENTLY, SKIN IS DRY AND INTACT, SENEGALESE SPEAKING, CAME IN TO THE ER AT 1 AM WITH COMPLAINTS OF ABDOMINAL PAIN THAT WORSENED THROUGHOUT THE NIGHT, LAST BM REPORTED ON 03/01/20, ABDOMEN IS TENDER, PT IS GUARDING WITH NO COMPLAINTS OF PAIN CURRENTLY, PT DID RECEIVE MORPHINE IN THE ER AT 2 AM. PT IS UNAWARE OF HER CURRENT MEDS THAT ARE TAKEN AT HOME, SON IS TO BRING IN MEDS WITH LIST TODAY FOR REVIEW WITH MD. PT WEARS GLASSES BUT DOES NOT HAVE THEM HERE WITH HER, NO H/A SHE HAS HER NATURAL TEETH AT THIS TIME AND IS A & O X 3. REPORT GIVEN OFF TO DAY NURSE.
[2020-03-03 07:17] VITALS: BP 99/58
--- NOTE | 2020-03-03 07:17 | NUR ---
PT IS RESTING BED IN HER LEFT SIDE. ED CALLED STATED TELE NOT READING. ADJUSTED TELE. NO S/S OF DISTRESS NOTED ON PT. ASSESSMENT DONE. PT DENIES PAIN AT THIS TIME. PT NPO. PT STATED SHE HAD A BM ON 03/01. PT STATED SHE IS TIRED AND SLEEPY. PT DENIES ANY NEEDS AT THIS TIME. SAFETY PRECAUTIONS REINFORCED AND CALL LIGHT IN REACH.
--- NOTE | 2020-03-03 09:15 | NUR ---
WRITTER NOTIFIED BY TELE MONITOR THAT PT TELE WAS NEEDING TO BE CHECKED. PT RESTING ON LEFT SIDE. LEAD PLACEMENT CHECKED. PT RESPIRATIONS ARE EVEN AND UNLABORED WITH NO SIGNS OF DISTRESS. ENCORAGED PT TO LAY ON BACK INSTEAD OF SIDE.
--- NOTE | 2020-03-03 11:08 | NUR ---
AND RIP ROSE IN ROOM TO ASSESS PT.
[2020-03-03 11:28] LABS: URINE BILIRUBIN - DIPSTICK NEGATIVE (NEGATIVE); URINE BLOOD DIPSTICK NEGATIVE (NEGATIVE); URINE COLOR YELLOW; URINE GLUCOSE - DIPSTICK NEGATIVE (NEGATIVE); URINE KETONE NEGATIVE (NEGATIVE); URINE LEUK ESTERASE NEGATIVE (NEGATIVE); URINE NITRITE - DIPSTICK NEGATIVE (Negative); URINE PH 5.5 (4.5-8.0); URINE PROTEIN - DIPSTICK NEGATIVE (NEG-TRACE); URINE SPECIFIC GRAVITY 1.015; URINE UROBILINOGEN - DIPSTICK 0.2 E.U./dL (0.2)
--- NOTE | 2020-03-03 13:58 | NUR ---
PT REQUESTING FOOD. TOLD HER SHE NEEDS TO BE NPO FOR HER TEST. PT GOING VIA WHEELCHAIR TO CT BY ONLINE EDUCATION MANAGER.
[2020-03-03 15:47] VITALS: BP 111/70
--- NOTE | 2020-03-03 16:30 | NUR ---
PT IS SITTING IN THE SIDE OF THE BED. PT STATED SHE IS HAVING WATERY BM DUE TO HER CT TEST. PROVIDED MOUTH SWAB TO PT. PT DENIES ANY OTHER NEEDS AT THIS TIME. CALL LIGHT IN REACH.
[2020-03-03 19:00] VITALS: BP 115/78
--- NOTE | 2020-03-03 20:25 | NUR ---
PT WITH NO COMPLAINTS OF PAIN AT THIS TIME. SON STATES HE WILL BRING IN PTS HOME MEDICATIONS TOMORROW TO BE REVIEWED BY BASIL CELIS SWAB PENDING RESULTS. CONTINUES ON TELI, U/A WAS NEGATIVE.
[2020-03-04] VITALS: BP 94/56
--- NOTE | 2020-03-04 01:00 | NUR ---
PT IV TO LEFT AC, NO C/O PAIN AT THIS TIME, NO TENDERNESS NOTED TO THE ABDOMEN AT THIS TIME.
[2020-03-04 04:00] VITALS: BP 90/56
[2020-03-04 05:32] LABS: MEAN CELL VOLUME 100.2 fL CALC (80.0-100.0); MEAN CORPUSCULAR HGB 30.6 pG CALC (26.0-32.0); MEAN CORPUSCULAR HGB CONC 30.6 g/dL CAL (32.0-36.0); RED BLOOD COUNT 4.21 mill/uL (4.20-5.60); RED CELL DISTRI WIDTH 14.8 % (11.5-15.5)
[2020-03-04 05:39] LABS: ALKALINE PHOSPHATASE 93 u/l (38-126); ANION GAP 5 (6-22 (CALC)); BUN 10 mg/dL (7-17); BUN/CREATININE RATIO 14 (12-20 (CALC)); CARBON DIOXIDE 38 mmol/l (22-30); CHLORIDE 100 mmol/l (95-108); CREATININE 0.8 mg/dL (0.5-1.0); GFR > 60 ML/MIN (>=60 (CALC)); GFR FOR AFR.AMER. > 60 ML/MIN (>=60 (CALC)); POTASSIUM 4.3 mmol/l (3.5-5.1); SGOT/AST 35 u/l (14-36); SODIUM 138 mmol/l (137-146)
[2020-03-04 05:44] LABS: HEMATOCRIT 42.2 % (37.0-47.0); HEMOGLOBIN 12.9 g/dl (12.0-16.0)
[2020-03-04 06:04] LABS: ALBUMIN 3.5 g/dL (3.2-5.0); BILIRUBIN, TOTAL 0.4 mg/dL (0.0-1.4); TOTAL PROTEIN 5.8 g/dL (6.3-8.2)
--- NOTE | 2020-03-04 06:32 | NUR ---
PT RESTING IN BED WITH NO S/S OF DISTRESS.
--- NOTE | 2020-03-04 07:10 | NUR ---
REPORT RECEIVED FROM EUGENIO RAYMUNDO;PT APPEARS TO BE SLEEPING IN SEMI FOWLERS POSITION; NO S/S OF DISTRESS NOTED;RESPIRATIONS EVEN AND UNLABORED ON O2 @ 2L VIA NC;TELE MONITORING IN PLACE;ALL SAFETY PRECAUTIONS NOTED WITH BED IN THE LOWEST POSITION AND CALL LIGHT IN REACH;WILL CONTINUE TO MONITOR
[2020-03-04 08:38] VITALS: BP 102/60
--- NOTE | 2020-03-04 08:40 | NUR ---
PT RESTING AT BEDSIDE,A&O X3;VS OBTAINED AND ASSESSMENT COMPLETED;PT DENIES ANY CURRENT PAIN OR DISCOMFORTS,PAIN SCALE AND REPORTING EDUCATED;RESPIRATIONS SHALLOW ON O2 @ 2L VIA NC,DIMINISHED LUNG SOUNDS;ABDOMEN SOFT ON PALPATION AND ACTIVE IN ALL 4 QUADRANTS;WEAK PEDAL PULSES;SKIN INTACT;TELE MONITORING IN PLACE;#20G TO LAC FLUSHED AND PATENT,ABX HUNG AT THIS TIME;PT DENIES ANY ADDITIONAL NEEDS AT THIS TIME AND IS ENCOURAGED TO CALL FOR ASSISTANCE IF NEEDED;FALL PRECAUTIONS IN PLACE WITH BED IN THE LOWEST POSITION AND CALL LIGHT IN REACH;WILL CONTINUE TO MONITOR
[2020-03-04] MEDS ORDERED: ZPAK PO (09:46)
--- NOTE | 2020-03-04 10:20 | NUR ---
IV SITE NOTED TO BE LEAKING,REMOVED WITH CATHETER INTACT.
[2020-03-04 10:45] VITALS: BP 97/54
--- NOTE | 2020-03-04 12:30 | NUR ---
PT RESING AT BEDSIDE EATING LUNCH;RESPIRATIONS EVEN AND UNLABORED ON O2 @ 2L VIA NC;PT DENIES ANY CURRENT PAIN OR NEEDS;IV SITE AND TELE MONITORING D/C FOR D/C HOME;PT SET UP FOR SHOWER PER REQUEST;PT AWARE OF PENDING D/C HOME AND VERBALIZES UNDERSTANDING;PT DENIES ANY ADDITIONAL NEEDS AT THIS TIME;ENCOURAGED TO CALL FOR ASSISTANCE IF NEEDED;FALL PRECAUTIONS IN PLACE WITH CALL LIGHT IN REACH;WILL CONTINUE TO MONITOR
--- NOTE | 2020-03-04 13:20 | NUR ---
ALL DISCHARGE INSTRUCTIONS PROVIDED AT THIS TIME;PT INSTRUCTED TO ADVANCE DIET TOLERATED, COMPLETE COURSE OF ABX, AVOID CONSTIPATION AND F/U WITH PCP IN 1 WEEK;RX FOR ZITHRO PROVIDED;PT DENIES ANY ADDITIONAL QUESTIONS OR NEEDS;WHEELCHAIR TO BE PROVIDED FOR D/C HOME;FAMILY TO TRANSPORT PT HOME;WILL CONTINUE TO MONITOR
--- NOTE | 2020-03-04 13:40 | NUR ---
Discharge instructions given. Patient verbalizes understanding of same. Discharged in stable condition via to Home with family. All belongings sent with pt. PT TRANSPORTED TO [facility] IN STABLE CONDITION VIA WHEELCHAIR ACCOMPANIED BY WRITTER.ALL BELONGINGS LEFT WITH WRITTER.
== END 2020-03-04 13:40 | disposition home or self-care (01) | DRG 388 ==
LOC: ED 01:02 → ED-I 04:34 → ED 04:55 → MS2 04:56
PROVIDERS: Emergency Medicine; Nurse Practitioner Family; ADMIT Internal Medicine; ATTEND Internal Medicine
DX: K56.600 Partial intestinal obstruction, unspecified as to cause (principal); J18.9 Pneumonia, unspecified organism; J44.0 Chronic obstructive pulmonary disease with (acute) lower respiratory infection; J96.10 Chronic respiratory failure, unspecified whether with hypoxia or hypercapnia; F17.200 Nicotine dependence, unspecified, uncomplicated; Z99.81 Dependence on supplemental oxygen; Z90.49 Acquired absence of other specified parts of digestive tract; Z20.828 Contact with and (suspected) exposure to other viral communicable diseases
CPT/HCPCS: Q9967; S0164

== ENCOUNTER 2021-01-03 06:56 | Observation (INO) | payer MEDICAID ==
[~2021-01-03 06:56] MED LIST changes: +ZPAK PO
[2021-01-03 08:41] LABS: IMMATURE GRANULOCYTES 0.6 % (0.0-5.0); MEAN CORPUSCULAR HGB 26.9 pG CALC (26.0-32.0); MEAN CORPUSCULAR HGB CONC 28.7 g/dL CAL (32.0-36.0); NEUT# 5.1 thou/uL (2.00-7.15); RED BLOOD COUNT 5.2 mill/uL (4.20-5.60); RED CELL DISTRI WIDTH 16.2 % (11.5-15.5)
[2021-01-03 08:43] LABS: HEMATOCRIT 48.8 % (37.0-47.0); MEAN CELL VOLUME 93.8 fL CALC (80.0-100.0)
[2021-01-03 08:55] LABS: ALBUMIN 3.8 g/dL (3.2-5.0); ALKALINE PHOSPHATASE 105 u/l (38-126); ANION GAP 10 (6-22 (CALC)); BUN 6 mg/dL (8-23); BUN/CREATININE RATIO 9 (12-20 (CALC)); CARBON DIOXIDE 36 mmol/l (22-30); CHLORIDE 95 mmol/l (95-108); CREATININE 0.7 mg/dL (0.5-1.0); GFR > 60 ML/MIN (>=60 (CALC)); GFR FOR AFR.AMER. > 60 ML/MIN (>=60 (CALC)); LIPASE 29 u/l (23-300); POTASSIUM 3.7 mmol/l (3.5-5.1); SGOT/AST 19 u/l (9-36); SODIUM 138 mmol/l (137-146); TOTAL PROTEIN 6.9 g/dL (6.3-8.2)
[2021-01-03 09:00] LABS: BILIRUBIN, TOTAL 0.7 mg/dL (0.0-1.4)
[2021-01-03 09:53] LABS: URINE BILIRUBIN - DIPSTICK NEGATIVE (NEGATIVE); URINE BLOOD DIPSTICK TRACE-INTACT (NEGATIVE); URINE COLOR YELLOW; URINE GLUCOSE - DIPSTICK NEGATIVE (NEGATIVE); URINE KETONE NEGATIVE (NEGATIVE); URINE LEUK ESTERASE NEGATIVE (NEGATIVE); URINE PROTEIN - DIPSTICK NEGATIVE (NEG-TRACE); URINE UROBILINOGEN - DIPSTICK 0.2 E.U./dL (0.2)
[2021-01-03 09:56] LABS: URINE NITRITE - DIPSTICK NEGATIVE (Negative)
[2021-01-03 16:14] VITALS: BP 135/73
[2021-01-03 19:09] VITALS: BP 109/64
[2021-01-04 00:05] VITALS: BP 113/64
[2021-01-04 03:39] VITALS: BP 113/52
[2021-01-04 05:22] LABS: HEMATOCRIT 46.7 % (37.0-47.0); HEMOGLOBIN 13.3 g/dl (12.0-16.0); MEAN CELL VOLUME 94.9 fL CALC (80.0-100.0); MEAN CORPUSCULAR HGB CONC 28.5 g/dL CAL (32.0-36.0); RED BLOOD COUNT 4.92 mill/uL (4.20-5.60); RED CELL DISTRI WIDTH 15.6 % (11.5-15.5)
[2021-01-04 05:42] LABS: ANION GAP 9 (6-22 (CALC)); BUN 11 mg/dL (8-23); BUN/CREATININE RATIO 16 (12-20 (CALC)); CALCULATED LDLCHOLESTEROL 90 mg/dL (62-129 (CALC)); CARBON DIOXIDE 39 mmol/l (22-30); CHLORIDE 94 mmol/l (95-108); CHOLESTEROL HDL RATIO 4.5 (<4.4 (CALC)); CREATININE 0.6 mg/dL (0.5-1.0); GFR > 60 ML/MIN (>=60 (CALC)); GFR FOR AFR.AMER. > 60 ML/MIN (>=60 (CALC)); HDL CHOLESTEROL 30 mg/dL (>=40); SODIUM 137 mmol/l (137-146); TOTAL CHOLESTEROL 137 mg/dl (0-199); TOTAL TRIGLYCERIDES 84 mg/dl (30-149); VLDL CHOLESTROL 17 mg/dl (1-41 (CALC))
[2021-01-04 05:44] LABS: POTASSIUM 4.6 mmol/l (3.5-5.1)
[2021-01-04 07:34] VITALS: BP 119/73
[2021-01-04 10:47] VITALS: BP 109/52
== END 2021-01-04 12:09 | disposition home or self-care (01) ==
LOC: ED 06:56 → ED-I 09:24 → ED 09:33 → MS2 09:34
PROVIDERS: Nurse Practitioner; ADMIT Hospitalist; ATTEND Hospitalist
DX: J44.1 Chronic obstructive pulmonary disease with (acute) exacerbation (principal); I50.9 Heart failure, unspecified; R09.02 Hypoxemia; F17.210 Nicotine dependence, cigarettes, uncomplicated; Z99.81 Dependence on supplemental oxygen; Z20.822 Contact with and (suspected) exposure to COVID-19
CPT/HCPCS: G0378; J1650; Q9967

== ENCOUNTER 2022-12-14 16:02 | Observation (INO) | payer BC ==
[~2022-12-14] VITALS: Ht 165.1 cm; Wt 119.2 kg
[2022-12-14 16:16] VITALS: BP 109/93
[2022-12-14 16:30] VITALS: BP 128/90
[2022-12-14 16:53] LABS: BASO% 0.4 % (0-3); EOS% 1.1 % (0-8); HEMATOCRIT 46.9 % (37.0-47.0); HEMOGLOBIN 13.3 g/dl (12.0-16.0); IMMATURE GRANULOCYTES 1.5 % (0.0-5.0); LYMPH% 15.8 % (15-41); MEAN CELL VOLUME 98.1 fL CALC (80.0-100.0); MEAN CORPUSCULAR HGB 27.8 pG CALC (26.0-32.0); MEAN CORPUSCULAR HGB CONC 28.4 g/dL CAL (32.0-36.0); MONO% 7.6 % (2-13); NEUT# 6.23 thou/uL (2.00-7.15); NEUT% 73.6 % (42-76); RED BLOOD COUNT 4.78 mill/uL (4.20-5.60); RED CELL DISTRI WIDTH 16.1 % (11.5-15.5)
[2022-12-14 17:06] LABS: ALBUMIN 3.6 g/dL (3.2-5.0); ALKALINE PHOSPHATASE 92 u/l (38-126); BILIRUBIN, TOTAL 0.8 mg/dL (0.02-1.3); BUN 8 mg/dL (8-23); BUN/CREATININE RATIO 11 (12-20 (CALC)); CHLORIDE 94 mmol/l (95-108); CREATININE 0.7 mg/dL (0.5-1.0); GFR FOR AFR.AMER. > 60 ML/MIN (>=60 (CALC)); GFR OTHER RACES > 60 ML/MIN (>=60 (CALC)); POTASSIUM 4.2 mmol/l (3.5-5.1); SGOT/AST 22 u/l (9-36); SODIUM 138 mmol/l (137-146); TOTAL PROTEIN 6.7 g/dL (6.3-8.2)
[2022-12-14 17:13] LABS: ANION GAP 9 (6-22 (CALC)); CARBON DIOXIDE 39 mmol/l (22-30)
[2022-12-14] MEDS ORDERED: VITAMIN D350000 UNIT PO (19:14)
[2022-12-14 23:48] VITALS: BP 147/74
[2022-12-15 05:13] VITALS: BP 111/59
[2022-12-15 05:52] LABS: HEMATOCRIT 46.7 % (37.0-47.0); HEMOGLOBIN 13.4 g/dl (12.0-16.0); MEAN CELL VOLUME 98.1 fL CALC (80.0-100.0); MEAN CORPUSCULAR HGB 28.2 pG CALC (26.0-32.0); MEAN CORPUSCULAR HGB CONC 28.7 g/dL CAL (32.0-36.0); RED BLOOD COUNT 4.76 mill/uL (4.20-5.60); RED CELL DISTRI WIDTH 16.2 % (11.5-15.5)
[2022-12-15 06:04] LABS: ALBUMIN 3.7 g/dL (3.2-5.0); ALKALINE PHOSPHATASE 86 u/l (38-126); BILIRUBIN, TOTAL 0.6 mg/dL (0.02-1.3); BUN 11 mg/dL (8-23); BUN/CREATININE RATIO 14 (12-20 (CALC)); CHLORIDE 94 mmol/l (95-108); CREATININE 0.8 mg/dL (0.5-1.0); GFR FOR AFR.AMER. > 60 ML/MIN (>=60 (CALC)); GFR OTHER RACES > 60 ML/MIN (>=60 (CALC)); MAGNESIUM 2.1 mg/dL (1.6-2.3); POTASSIUM 4.7 mmol/l (3.5-5.1); SGOT/AST 20 u/l (9-36); SODIUM 141 mmol/l (137-146); TOTAL PROTEIN 6.7 g/dL (6.3-8.2)
[2022-12-15 06:10] LABS: ANION GAP 9 (6-22 (CALC))
[2022-12-15 06:17] LABS: CARBON DIOXIDE 43 mmol/l (22-30)
[2022-12-15 08:48] VITALS: BP 107/44
[2022-12-15 12:57] VITALS: BP 105/51
[2022-12-15 13:29] LABS: URINE BILIRUBIN - DIPSTICK NEGATIVE (NEGATIVE); URINE BLOOD DIPSTICK NEGATIVE (NEGATIVE); URINE COLOR YELLOW; URINE GLUCOSE - DIPSTICK NEGATIVE (NEGATIVE); URINE KETONE NEGATIVE (NEGATIVE); URINE LEUK ESTERASE NEGATIVE (NEGATIVE); URINE PROTEIN - DIPSTICK TRACE mg/dL (NEG-TRACE)
[2022-12-15 13:31] LABS: URINE NITRITE - DIPSTICK NEGATIVE (Negative)
[2022-12-15 19:25] VITALS: BP 123/53
[2022-12-16 00:15] VITALS: BP 122/53
[2022-12-16 03:59] VITALS: BP 122/64
[2022-12-16 04:49] LABS: BASO% 0.1 % (0-3); HEMATOCRIT 44.3 % (37.0-47.0); HEMOGLOBIN 12.7 g/dl (12.0-16.0); IMMATURE GRANULOCYTES 1.8 % (0.0-5.0); LYMPH% 8.3 % (15-41); MEAN CELL VOLUME 97.8 fL CALC (80.0-100.0); MEAN CORPUSCULAR HGB CONC 28.7 g/dL CAL (32.0-36.0); NEUT# 6.6 thou/uL (2.00-7.15); NEUT% 85.8 % (42-76); RED BLOOD COUNT 4.53 mill/uL (4.20-5.60); RED CELL DISTRI WIDTH 16.4 % (11.5-15.5)
[2022-12-16 05:03] LABS: ALBUMIN 3.5 g/dL (3.2-5.0); ALKALINE PHOSPHATASE 80 u/l (38-126); ANION GAP 8 (6-22 (CALC)); BILIRUBIN, TOTAL 0.4 mg/dL (0.02-1.3); BUN 20 mg/dL (8-23); BUN/CREATININE RATIO 25 (12-20 (CALC)); CHLORIDE 94 mmol/l (95-108); CREATININE 0.8 mg/dL (0.5-1.0); GFR FOR AFR.AMER. > 60 ML/MIN (>=60 (CALC)); GFR OTHER RACES > 60 ML/MIN (>=60 (CALC)); MAGNESIUM 2.2 mg/dL (1.6-2.3); POTASSIUM 4.4 mmol/l (3.5-5.1); SGOT/AST 19 u/l (9-36); SODIUM 138 mmol/l (137-146); TOTAL PROTEIN 6.3 g/dL (6.3-8.2)
[2022-12-16 05:25] LABS: CARBON DIOXIDE 40 mmol/l (22-30)
[2022-12-16 07:26] VITALS: BP 124/49
[2022-12-16 10:46] VITALS: BP 107/47
[2022-12-16] MEDS ORDERED: SPIRIVA RE2.5 MCG/AC IN (11:06)
[2022-12-16] MEDS ORDERED: PREDNISONE10 MG PO (11:07)
[2022-12-16] MEDS ORDERED: ALBUTEROL SUL0.083 % IN (13:47)
[2022-12-16 14:35] VITALS: BP 107/51
== END 2022-12-16 16:42 | disposition home or self-care (01) | DRG 190 ==
LOC: ED 16:02 → ED-I 17:40 → ED 17:53 → MS2 17:54 → ED-I 17:54 → MS2 22:38
PROVIDERS: Nurse Practitioner; Nurse Practitioner Family; ADMIT Internal Medicine; ATTEND Internal Medicine
DX: J44.1 Chronic obstructive pulmonary disease with (acute) exacerbation (principal); J96.21 Acute and chronic respiratory failure with hypoxia; J96.22 Acute and chronic respiratory failure with hypercapnia; I50.9 Heart failure, unspecified; F17.210 Nicotine dependence, cigarettes, uncomplicated; Z99.81 Dependence on supplemental oxygen; Z85.43 Personal history of malignant neoplasm of ovary; Z92.3 Personal history of irradiation; Z92.21 Personal history of antineoplastic chemotherapy; Z20.822 Contact with and (suspected) exposure to COVID-19
CPT/HCPCS: G0378; J1100; J1650

== ENCOUNTER 2023-03-03 15:59 | Emergency (ER) | payer BC ==
[~2023-03-03] VITALS: Ht 165.1 cm; Wt 117.4 kg
[~2023-03-03 15:59] MED LIST changes: +ALBUTEROL SUL0.083 % IN; +SPIRIVA RE2.5 MCG/AC IN; +VITAMIN D350000 UNIT PO
[2023-03-03 16:41] LABS: BASO% 0.1 % (0-3); HEMOGLOBIN 13.8 g/dl (12.0-16.0); IMMATURE GRANULOCYTES 0.4 % (0.0-5.0); LYMPH% 17.7 % (15-41); MEAN CELL VOLUME 97.3 fL CALC (80.0-100.0); MEAN CORPUSCULAR HGB 28.6 pG CALC (26.0-32.0); MEAN CORPUSCULAR HGB CONC 29.4 g/dL CAL (32.0-36.0); MONO% 8.7 % (2-13); NEUT# 4.98 thou/uL (2.00-7.15); NEUT% 71.1 % (42-76); RED BLOOD COUNT 4.83 mill/uL (4.20-5.60); RED CELL DISTRI WIDTH 16.5 % (11.5-15.5)
[2023-03-03 18:43] LABS: URINE BILIRUBIN - DIPSTICK Negative (NEGATIVE); URINE BLOOD DIPSTICK Negative (NEGATIVE); URINE GLUCOSE - DIPSTICK Negative (NEGATIVE); URINE KETONE Negative (NEGATIVE); URINE LEUK ESTERASE Negative (NEGATIVE); URINE NITRITE - DIPSTICK Negative (Negative); URINE PROTEIN - DIPSTICK Negative (NEG-TRACE); URINE SPECIFIC GRAVITY 1.015; URINE UROBILINOGEN - DIPSTICK 0.2 E.U./dL (0.2)
[2023-03-03 18:44] LABS: URINE COLOR Yellow
[2023-03-03 19:01] LABS: ALBUMIN 3.6 g/dL (3.2-5.0); ALKALINE PHOSPHATASE 88 u/l (38-126); ANION GAP 6 (6-22 (CALC)); BUN 10 mg/dL (8-23); BUN/CREATININE RATIO 13 (12-20 (CALC)); CARBON DIOXIDE 39 mmol/l (22-30); CHLORIDE 97 mmol/l (95-108); CREATININE 0.8 mg/dL (0.5-1.0); GFR FOR AFR.AMER. > 60 ML/MIN (>=60 (CALC)); GFR OTHER RACES > 60 ML/MIN (>=60 (CALC)); POTASSIUM 4.3 mmol/l (3.5-5.1); SGOT/AST 20 u/l (9-36); SODIUM 138 mmol/l (137-146); TOTAL PROTEIN 6.1 g/dL (6.3-8.2)
[2023-03-03 19:02] LABS: BILIRUBIN, TOTAL 0.6 mg/dL (0.02-1.3)
[2023-03-03] MEDS ORDERED: PREDNISONE20 MG PO (20:57)
[2023-03-03 21:30] VITALS: BP 143/73
== END 2023-03-03 21:30 | disposition home or self-care (01) | DRG 190 ==
LOC: ED 15:59
PROVIDERS: Family Medicine
DX: J44.1 Chronic obstructive pulmonary disease with (acute) exacerbation (principal); J96.21 Acute and chronic respiratory failure with hypoxia; J96.22 Acute and chronic respiratory failure with hypercapnia; F17.200 Nicotine dependence, unspecified, uncomplicated; T50.2X6A Underdosing of carbonic-anhydrase inhibitors, benzothiadiazides and other diuretics, initial encounter; Z91.128 Patient's intentional underdosing of medication regimen for other reason; Z20.822 Contact with and (suspected) exposure to COVID-19; Z99.81 Dependence on supplemental oxygen
CPT/HCPCS: Q9967

== ENCOUNTER 2023-05-24 20:19 | Emergency (ER) | payer BC ==
[~2023-05-24] VITALS: Ht 165.1 cm; Wt 120.0 kg
[~2023-05-24 20:19] MED LIST changes: +METOLAZONE5 MG PO; +PREDNISONE20 MG PO
[2023-05-24 20:37] VITALS: BP 118/61
[2023-05-24 20:46] VITALS: BP 127/63
[2023-05-24 21:01] VITALS: BP 100/67
[2023-05-24 21:01] LABS: BASO% 0.3 % (0-3); EOS% 3.3 % (0-8); HEMATOCRIT 49.2 % (37.0-47.0); HEMOGLOBIN 14.3 g/dl (12.0-16.0); IMMATURE GRANULOCYTES 0.1 % (0.0-5.0); LYMPH% 20.2 % (15-41); MEAN CELL VOLUME 94.3 fL CALC (80.0-100.0); MEAN CORPUSCULAR HGB 27.4 pG CALC (26.0-32.0); MEAN CORPUSCULAR HGB CONC 29.1 g/dL CAL (32.0-36.0); MONO% 6.6 % (2-13); NEUT# 4.86 thou/uL (2.00-7.15); NEUT% 69.5 % (42-76); RED BLOOD COUNT 5.22 mill/uL (4.20-5.60); RED CELL DISTRI WIDTH 15.9 % (11.5-15.5)
[2023-05-24 21:13] LABS: ALBUMIN 3.8 g/dL (3.2-5.0); ALKALINE PHOSPHATASE 99 u/l (38-126); ANION GAP 9 (6-22 (CALC)); BILIRUBIN, TOTAL 0.4 mg/dL (0.02-1.3); BUN 15 mg/dL (8-23); BUN/CREATININE RATIO 16 (12-20 (CALC)); CARBON DIOXIDE 38 mmol/l (22-30); CHLORIDE 97 mmol/l (95-108); CREATININE 0.9 mg/dL (0.5-1.0); GFR FOR AFR.AMER. > 60 ML/MIN (>=60 (CALC)); GFR OTHER RACES > 60 ML/MIN (>=60 (CALC)); MAGNESIUM 1.8 mg/dL (1.6-2.3); POTASSIUM 3.9 mmol/l (3.5-5.1); SGOT/AST 21 u/l (9-36); SODIUM 140 mmol/l (137-146); TOTAL PROTEIN 6.1 g/dL (6.3-8.2)
[2023-05-24 21:16] VITALS: BP 109/35
[2023-05-24 21:44] LABS: TSH, 3RD GENERATION 1.08 uIU/mL (0.47 - 4.68)
[2023-05-24 23:52] LABS: URINE BILIRUBIN - DIPSTICK Negative (NEGATIVE); URINE BLOOD DIPSTICK Negative (NEGATIVE); URINE GLUCOSE - DIPSTICK Negative (NEGATIVE); URINE KETONE Negative (NEGATIVE); URINE LEUK ESTERASE Negative (NEGATIVE); URINE NITRITE - DIPSTICK Negative (Negative); URINE PROTEIN - DIPSTICK Negative (NEG-TRACE); URINE SPECIFIC GRAVITY 1.015; URINE UROBILINOGEN - DIPSTICK 0.2 E.U./dL (0.2)
[2023-05-24 23:53] LABS: URINE COLOR Yellow
[2023-05-25 00:19] VITALS: BP 125/64
== END 2023-05-25 00:28 | disposition home or self-care (01) | DRG 948 ==
LOC: ED 20:19
PROVIDERS: Family Medicine
DX: R60.9 Edema, unspecified (principal); J44.9 Chronic obstructive pulmonary disease, unspecified; F17.200 Nicotine dependence, unspecified, uncomplicated; Z99.81 Dependence on supplemental oxygen